=== PATIENT | female | born 1970 | race Caucasian/White ===

== ENCOUNTER 2019-02-01 07:31 | Inpatient (IN) | payer OTHER ==
[~2019-02-01] VITALS: Ht 162.6 cm; Wt 102.9 kg
[~2019-02-01 07:31] MED LIST: ALBU8.5H5 INH; ALBU8.5H8 INH; AZIT250T PO; PRED20TA PO
[2019-02-01] MEDS ORDERED: SOD CHLORIDE 0.9% 1,000 ML IV STA (07:32)
[2019-02-01] MEDS ORDERED: MAGNESIUM SULFATE 2 GM/50 ML 50 ML IVPB STA (07:32)
[2019-02-01] MEDS ORDERED: IPRATROPIUM (NEB) 0.5 MG/2.5 ML AMP INH STA ×2 (07:32→09:22)
[2019-02-01] MEDS ORDERED: DEXAMETHASONE 10 MG/ML 1 ML INJ IV STA (07:32)
[2019-02-01] MEDS ORDERED: ALBUTEROL 0.5% (NEB) 2.5 MG/0.5 ML AMP INH STA ×2 (07:32→09:22)
[2019-02-01] MEDS ORDERED: EPINEPHrine 1 MG INJ IM STA (07:32)
[2019-02-01] MEDS ORDERED: CEFTRIAXONE 1 GM/50 ML (PMX) 50 ML IVPB STA (08:06)
[2019-02-01] MEDS ORDERED: AZITHROMYCIN 500MG/NS (PMX) 250 ML IV STA (08:06)
[2019-02-01] MEDS ORDERED: ONDANSETRON 4 MG INJ IV PRN ×2 (11:00→12:30)
[2019-02-01] MEDS ORDERED: ACETAMINOPHEN 325 MG TAB PO PRN ×2 (11:00→12:30)
[2019-02-01] MEDS ORDERED: NACL 0.9% 3 ML SYG IV SCH (12:30)
[2019-02-01 15:25] VITALS: BP 130/62; PULSE 89; RESP 19
[2019-02-01 15:31] VITALS: Ht 162.6 cm; Wt 102.9 kg
[2019-02-01] MEDS: ALBUTEROL/IPRATROPIUM (NEB) 3 ML AMP HHN PRN (15:40)
[2019-02-01 19:17] VITALS: BP 124/59; PULSE 103; RESP 21
[2019-02-01] MEDS ORDERED: SOD CHLORIDE 0.9% 500 ML IV ONE (22:30)
[2019-02-01] MEDS: MONTELUKAST 5 MG TAB PO SCH (22:52)
[2019-02-02 00:41] VITALS: BP 133/70; PULSE 94; RESP 22
[2019-02-02] MEDS: ALBUTEROL/IPRATROPIUM (NEB) 3 ML AMP HHN PRN ×3 (00:49→15:52)
[2019-02-02 03:42] VITALS: BP 101/54; PULSE 89; RESP 20
[2019-02-02 07:12] VITALS: BP 129/60; PULSE 78; RESP 19
[2019-02-02] MEDS: predniSONE 20 MG TAB PO SCH (08:28)
[2019-02-02] MEDS: AZITHROMYCIN 250 MG TAB PO SCH (08:28)
[2019-02-02] MEDS: PROMETHAZINE (1.25 MG/ML) 5 ML CUP PO PRN (11:00)
[2019-02-02] MEDS: CEFTRIAXONE 1 GM/50 ML (PMX) 50 ML IVPB SCH (11:12)
[2019-02-02 11:19] VITALS: BP 115/59; PULSE 62; RESP 18
[2019-02-02 15:12] VITALS: BP 119/59; PULSE 79; RESP 19
[2019-02-02 19:31] VITALS: BP 95/56; PULSE 91; RESP 17
[2019-02-02] MEDS: MONTELUKAST 5 MG TAB PO SCH (21:43)
[2019-02-03] VITALS: BP 110/72; PULSE 84; RESP 17
[2019-02-03 04:33] VITALS: BP 125/69; PULSE 80; RESP 17
[2019-02-03] MEDS: PROMETHAZINE (1.25 MG/ML) 5 ML CUP PO PRN (06:27)
[2019-02-03] MEDS: ALBUTEROL/IPRATROPIUM (NEB) 3 ML AMP HHN PRN (06:33)
[2019-02-03 07:36] VITALS: BP 110/53; PULSE 68; RESP 18
[2019-02-03] MEDS: predniSONE 20 MG TAB PO SCH (08:10)
[2019-02-03] MEDS: AZITHROMYCIN 250 MG TAB PO SCH (08:10)
[2019-02-03] MEDS: CEFTRIAXONE 1 GM/50 ML (PMX) 50 ML IVPB SCH (10:56)
[2019-02-03 11:25] VITALS: BP 143/60; PULSE 74; RESP 19
== END 2019-02-03 12:12 | disposition home or self-care (01) | DRG 202 ==
LOC: MERGE 07:31 → E/R 07:31 → TEL 10:35
PROVIDERS: ADMIT Internal Medicine; ATTEND Internal Medicine
DX: J45.901 Unspecified asthma with (acute) exacerbation (principal); R78.81 Bacteremia; E66.01 Morbid (severe) obesity due to excess calories; Z68.38 Body mass index [BMI] 38.0-38.9, adult; Z87.891 Personal history of nicotine dependence
CPT/HCPCS: 36415; 71045; 80048; 80053; 80061; 81003; 83036; 83605; 83735; 84100; 84443; 84703; 85025; 87081; 87086; 94640; 94644; 94664; 96372; 96374; 96375; J0171; J0456; J0696; J1100; J3475; J7030; J7040; J7512